=== PATIENT | male | born 1990 ===

== ENCOUNTER 2022-05-10 14:08 | Emergency (ER) | payer SELFPAY ==
[2022-06-04 13:10] LABS: ANION GAP 19.8 mEq/L (7-13); CHLORIDE,CL 101 mmol/L (98-107); ESTIMATED GFR 109 mL/min (>=60); SODIUM,NA 139 mmol/L (136-145)
[2022-06-04 13:13] LABS: AMPHETAMINES,URINE NEGATIVE (NEGATIVE); BARBITURATES,URINE NEGATIVE (NEGATIVE); BENZODIAZEPINE,URINE NEGATIVE (NEGATIVE); MDMA (ECSTASY), URINE NEGATIVE (NEGATIVE); METHADONE,URINE NEGATIVE (NEGATIVE); METHAMPHETAMINES,URINE NEGATIVE (NEGATIVE); OPIATES,URINE NEGATIVE (NEGATIVE); OXYCODONE,URINE NEGATIVE (NEGATIVE); PHENCYCLIDINE,URINE NEGATIVE (NEGATIVE); TCA,URINE NEGATIVE (NEGATIVE)
== END 2022-05-10 15:56 | disposition home or self-care (01) ==
LOC: DL.ED 14:08
DX: R07.9 Chest pain, unspecified (principal)
CPT/HCPCS: 36415; 80053; 80305-QW; 80307; 81001; 84484; 85025; 93005; 99284